=== PATIENT | male | born 1985 | race Two or more races ===

== ENCOUNTER 2019-07-19 10:35 | Emergency (ER) | payer BC, OTHER ==
[~2019-07-19] VITALS: Ht 170.2 cm; Wt 94.3 kg
[2019-07-19 10:50] VITALS: BP 148/86
[2019-07-19] MEDS ORDERED: ACETAMINOPHEN/CODEINE#3 (300/30mg) TAB PO ONE (12:00)
[2019-07-19] MEDS ORDERED: cefTRIAXone SOD 1,000 MG VL IM ONE (12:00)
== END 2019-07-19 12:26 | disposition home or self-care (01) ==
LOC: ER 10:35
DX: S10.81XA Abrasion of other specified part of neck, initial encounter (principal); Z48.00 Encounter for change or removal of nonsurgical wound dressing; V86.56XA Driver of dirt bike or motor/cross bike injured in nontraffic accident, initial encounter; Y93.89 Activity, other specified; Y92.89 Other specified places as the place of occurrence of the external cause; Y99.8 Other external cause status
CPT/HCPCS: 96372; 99283; J0696

== ENCOUNTER 2020-08-15 10:52 | Emergency (ER) | payer BC ==
[~2020-08-15] VITALS: Ht 167.6 cm; Wt 93.9 kg
[2020-08-15 14:54] VITALS: BP 132/89
== END 2020-08-15 15:02 | disposition home or self-care (01) ==
LOC: ER 10:52
DX: M79.672 Pain in left foot (principal); Z90.89 Acquired absence of other organs
CPT/HCPCS: 73630

== ENCOUNTER 2024-08-20 20:33 | Emergency (ER) | payer BC ==
[~2024-08-20] VITALS: Ht 170.2 cm; Wt 97.0 kg
--- NOTE | 2024-08-20 21:41 | ED.PDOC ---
Musculoskeletal HPI Comments This is a 38 year old male presenting to the ED with chief complaint of laceration to finger. Patient reports that he had been cutting meat earlier today, however, when being distracted by his kid, he kept cutting the meat and accidentally cut a hole in his left middle finger nail. Patient relays that he is UTD with his Tetanus vaccine. Patient notes he wrapped up the finger at home to stop the bleeding as it was continuous. Patient denies any numbness, weakness, or any further symptoms at this time. Chief Complaint: Upper Extremity Time Seen by MD: 21:37 Primary Care Provider: NONE Reviewed Notes: Nurses Notes, Medications, Allergies Allergies: Coded Allergies: NO KNOWN ALLERGIES (Unverified , 07/19/19) Information Source: Patient Mode of Arrival: Ambulatory Location: Left Extremity Location: Finger 3 Timing: Minutes Prehospital treatment: None Severity: Moderate Able to Move Extremity: Yes Pain: Moderate Mechanism: Knife Cut Circumstances: Accident Onset of Symptoms: After Trauma Symptoms: Pain DVT Risk Factors: NONE Last Tetanus: UTD Past Medical History PAST MEDICAL HISTORY: Denies Surgical History: Appendectomy Family History Family History: Reviewed,noncontributory to illness Social History Smoker: Non-Smoker Alcohol: Occasionally Drugs: Denies Drug Use Lives In: Home Constitutional: denies: chills, diaphoresis, fatigue, fever, malaise, sweats, weakness, others EENTM: denies: blurred vision, double vision, ear bleeding, ear discharge, ear drainage, ear pain, ear ringing, eye pain, eye redness, hearing loss, mouth pain, mouth swelling, nasal discharge, nose bleeding, nose congestion, nose pain, photophobia, tearing, throat pain, throat swelling, voice changes, others Respiratory: denies: cough, hemoptysis, orthopnea, SOB at rest, shortness of breath, SOB with excertion, stridor, wheezing, others Cardiovascular: denies: chest pain, dizzy spells, diaphoresis, Dyspnea on exertion, edema, irregular heart beat, left arm pain, lightheadedness, palpitations, PND, syncope, others Gastrointestinal: denies: abdomen distended, abdominal pain, blood streaked bowels, constipated, diarrhea, dysphagia, difficulty swallowing, hematemesis, melena, nausea, poor appetite, poor fluid intake, rectal bleeding, rectal pain, vomiting, others Genitourinary: denies: burning, dysuria, flank pain, frequency, hematuria, incontinence, penile discharge, penile sore, pain, testicle pain, testicle swelling, urgency, others Neurological: denies: dizziness, fainting, headache, left sided numbness, left sided weakness, numbness, paresthesia, pre-existing deficit, right sided numbness, right sided weakness, seizure, speech problems, tingling, tremors, weakness, others Musculoskeletal: denies: back pain, gout, joint pain, joint swelling, muscle pain, muscle stiffness, neck pain, others Integumetry: reports: laceration; denies: bruises, change in color, change in hair/nails, dryness, lesions, lumps, rash, wounds, others Allergic/Immunocompromised: denies: Difficulty Healing, Frequent Infections, Hives, Itching, others Hematologic/Lymphatic: denies: anemia, blood clots, easy bleeding, easy bruising, swollen glands, others Endocrine: denies: excessive hunger, excessive sweating, excessive thirst, excessive urination, flushing, intolerance to cold, intolerance to heat, unexplained weight gain, unexplained weight loss, others Psychiatric: denies: anxiety, bipolar disorder, depression, hopeless, panic disorder, schizophrenia, sleepless, suicidal, others All Other Systems: Reviewed and Negative Physical Exam General Appearance: No Apparent Distress, Normal HEENT: Normal ENT Inspection, Pharynx Normal, TMs Normal Neck: Full Range of Motion, Non-Tender, Normal, Normal Inspection Respiratory: Chest Non-Tender, Lungs Clear, No Accessory Muscle Use, No Respiratory Distress, Normal Breath Sounds Cardiovascular: No Edema, No JVD, No Murmur, No Gallop, Normal Peripheral Pulses, Regular Rate/Rhythm Breast Exam: Deferred Gastrointestinal: No Organomegaly, Non Tender, No Pulsatile Mass, Normal Bowel Sounds, Soft Genitalia: Deferred Pelvic: Deferred Rectal: Deferred Extremities: No calf tenderness, Normal capillary refill, Normal inspection, Normal range of motion, Non-tender, No pedal edema Musculoskeletal : Apperance: Normal Neurologic: Alert, supervisor warping department II-XII nml as Tested, No Motor Deficits, Normal Affect, Normal Mood, No Sensory Deficits Cerebellar Function: Normal Reflexes: Normal Skin: Dry, Normal Color, Warm, Other (1cm hole to top of left middle finger nail.) Lymphatic: No Adenopathy Was a procedure done? Was a procedure done?: Yes Sedation Sedation?: No Laceration Repair : Location Left middle finger nail Length 1cm Anesthetic: Nothing Laceration Repair Prep: Manual Scrub Laceration Repair Wound Comple: epidermis/dermis repair Informed consent obtained: Yes Risks, benefits, and alternati: Yes Notes Bleeding controlled in office with Surgicel dressing. Patient tolerated procedure well. Differential Diagnosis EXT Differential Diagnosis: Laceration X-Ray, Labs, Meds, VS Vital Signs Date Time Temp Pulse Resp B/P (MAP) Pulse Ox O2 Delivery O2 Flow Rate FiO2 08/20/24 21:48 98.2 72 18 151/95 (113) 97 98.2 X-Ray, Labs, Meds, VS Comment Imaging: X-rays and CT scans were reviewed and interpreted by this provider, imaging shows no fractures and no pathological disease. Pending radiology review. Laboratory: Labs reviewed and interpreted by this provider. No significant abnormalities noted. Patient has prior medical visits reviewed. Med reconciliation performed Vital signs reviewed Time of 1ST Reevaluation: 21:40 Reevaluation 1ST: Improved Patient Education/Counseling: Diagnosis, Treatment, Need For Follow Up (Follow up in 24 hours for wound recheck) Family Education/Counseling: No Family Present Departure 1 Departure Time of Disposition: 22:13 Impression: Primary Impression: Avulsion of nail of left ring finger Disposition: 01 HOME / SELF CARE / HOMELESS Condition: Fair e-Prescriptions Hydrocodone-Acetaminophen (Hydrocodone Bitartrate/AC 5-325 mg) 1 Tab Tab 1 TAB PO TID PRN, #20 TAB Prov: ANA BLEVINS 08/20/24 Discharged With: Self Critical Care Note Critical Care Time?: No Stability Stability form required: No Heart Score Heart Score: Heart Score Response (Comments) Value History N/A 0 EKG N/A 0 Age N/A 0 Risk Factors N/A 0 Troponin N/A 0 Total 0 I personally scribed for ANA BLEVINS ([email or web address]) on 08/20/24 at 21:41. Electronically submitted by Andrey Logan ([email or web address]). ANA BLEVINS Aug 20, 2024 21:41
[2024-08-20] MEDS ORDERED: HYDR-4902 PO (22:14)
[2024-08-20] MEDS: HYDROcodone-ACET 5/325MG TAB PO ONE (22:34)
[2024-08-20 22:36] VITALS: BP 146/80; PULSE 66; RESP 18; TEMP 98.7; O2SAT 98
== END 2024-08-20 22:47 | disposition home or self-care (01) ==
LOC: ER 20:33
DX: S61.213A Laceration without foreign body of left middle finger without damage to nail, initial encounter (principal); Z90.49 Acquired absence of other specified parts of digestive tract; W26.0XXA Contact with knife, initial encounter; Y93.89 Activity, other specified; Y92.89 Other specified places as the place of occurrence of the external cause; Y99.8 Other external cause status